=== PATIENT | female | born 1970 | race Caucasian/White ===

== ENCOUNTER → 2021-06-28 | Outpatient (CLI) | payer OTHER ==
[2021-06-28 20:12] LABS: Free Thyroxine 1.25 ng/dL (0.70-1.60)
[2021-06-28 20:14] LABS: Thyroid Stimulating Hormone 0.18 uIU/mL (0.360-4.800); Triiodothyronine, Free 2.97 pg/mL (2.18-3.98)
== END | disposition home or self-care (01) ==
LOC: LAB SHORT 15:30 → LAB 15:30
PROVIDERS: Nurse Practitioner Family
DX: E03.9 Hypothyroidism, unspecified (principal)
CPT/HCPCS: 84439; 84443; 84481